=== PATIENT | female | born 1940 | race Caucasian/White ===

== ENCOUNTER → 2017-08-11 | Day surgery (SDC) | payer OTHER ==
[~2017-08-11] VITALS: Ht 154.9 cm; Wt 60.8 kg
[~2017-08-11] MED LIST: *morphine SULFATE 8 MG/ML PERIprocedure ONLY ONE; ACETAMINOPHEN 1000 MG/100 ML 100 ML IV ONE; ASPI-110 PO; BUPIVACAINE/EPINEPHRINE 0.5% 50 ML VIAL ONE; CHLORHEXIDINE GLUCONATE 2 % 1 PACK (2 CLOTHS) TOPICAL PRN; DEXAMETHASONE SOD PHOS 4 MG/ML VIAL IV ONE; DO NOT ADM ANY ANTICOAGULANT DRUGS PRN; ESTROGENS CONJUGATED VAG CREA 15 APPL/30 GM TUBE ONE; FAMOTIDINE 20 MG/2 ML VIAL ONE; FUROSEMIDE 40 MG/4 ML VIAL ONE; GLYCOPYRROLATE 0.2 MG/ML VIAL IV ONE; HYDR-3516 PO; IBUP200T2 PO; INSULIN HUMAN REGULAR 1,000 UNITS/10 ML VIAL SQ PRN; KETOROLAC TROMETHAMINE 30 MG/ML (IVP) VIAL IV PUSH ONE; LABETALOL HCL 100 MG/20 ML VIAL IV ONE; LACTATED RINGER'S 1000 ML INJ 1,000 ML IV ONE; LACTATED RINGER'S 1000 ML IV PRN; LEVO50TA4 PO; LEVO75TA3 PO; LIDOCAINE HCL 1% PF 5 ML AMPULE OTHER ONE; LISI-519 PO; LOVA40TA PO; METHYLENE BLUE 10 MG/ML VIAL IV ONE; METO25TA3 PO; METOPROLOL TARTRATE 25 MG TAB PO PRN; MIDAZOLAM HCL 2 MG/2 ML VIAL IV ONE; MIRA0.5T PO; NEOSTIGMINE 3 MG/3 ML SYR IV ONE; ONDANSETRON HCL 4 MG/2 ML VIAL IV PUSH ONE; OXYTOCIN 10 UNIT/ML AMP ONE; POVIDONE IODINE 5% (ANTISEPSIS KIT) 4 APPLICATIONS EACH NARE PRN; PROPOFOL 200 MG/20 ML AMP IV ONE; ROCURONIUM INJ 50 MG/5 ML SYRINGE IV PUSH ONE; SODIUM CHLORID 0.9% 500 ML IV PRN; SODIUM CHLORIDE 0.9% 20 ML VIAL ONE; VASOPRESSIN 20 UNITS/ML VIAL (IVTITR) ONE; VENTAER INH; VITA1000 PO; ceFAZolin 2 GM PREMIX 50 ML IV SCH; ePHEDrine/NS 25 MG/5 ML SYR IV ONE; oxyCODONE/ACETAMINOPHEN 5 MG/325 MG TAB PO PRN
--- NOTE | 2017-08-11 07:34 | PD.OP ---
Operative Report Date of Surgery: Aug 11, 2017 Preoperative Diagnosis: (1) Incomplete uterovaginal prolapse (2) Intramural leiomyoma of uterus (3) Pelvic and perineal pain Postoperative Diagnosis: (1) Incomplete uterovaginal prolapse (2) Intramural leiomyoma of uterus (3) Pelvic and perineal pain Procedure: 1. LAVH 2. BSO 3. culdoplasty Anesthesia: GETA Surgeon: Mayra Johnson [employer] Operator(s): OR Staff Operation and Findings: IVF: 1500 ml LR + IV antibiotics given prior to surgery EBL: 25 ml UO: 500 ml Findings: 1. abdominal adhesions 2. normal uterus, tubes and ovaries Specimens: cervix, uterus, tubes and ovaries Complications: none Condition: stable Disposition: PACU Descriptions of the procedure: I discussed the risks, benefits and alternatives of the procedure with the patient. Informed consent was obtained after questions were answered. She was then taken to the operating room with her IV running. She was placed in the supine position and was given general anesthesia without difficulties or complications. She was then placed in the dorsal lithotomy position and was prepped and draped in the usual sterile fashion. Attention was first turned to the patient's genital area. A bivalved speculum was introduced inside the patient's vagina. The anterior aspect of the cervix was grasped with a single tooth tenaculum for manipulation. The cervix was carefully dilated and a uterine manipulator was carefully introduced inside her uterus. The rest of the instruments were removed from the patient's vagina and a sterile blue towel was used to cover the perineum. The surgeon changed gloves and attention was then turned to the patient's abdomen. A vertical umbilical incision was made with the scalpel. A 5 mm trocar was introduced inside the patient's abdomen under direct visualization. A pneumo -peritoneum was created with CO2 gas. Next, two 5 mm trocars were introduced inside the patient's abdomen under direct visualization in the lower mid, and left abdomen. A survey of the patient's abdomen revealed normal anatomy with numerous areas of adhesions. A survey of the patient's pelvis revealed the findings noted above. The round ligaments and infundibulopelvic ligaments were carefully and serially grasped, electrocauterized and cut with the Harmonic scalpel. Excellent hemostasis was noted. The tissues along the uterus on both sides were serially grasped, electrocauterized and transected with the Harmonic scalpel. The ureters were noted to be away from the surgical site. The uterine vessels were skeletonized, electrocauterized and transected with the Harmonic scalpel. Good hemostasis was noted. Next, the bladder flap was created and the bladder was dissected off the lower uterine segment. Excellent hemostasis was noted. At this point, attention was again turned to the patient's perineal area. The uterine manipulator was removed. The Bovie was used to circumferentially cut the vaginal tissues at the cervico-vaginal junction after Pitressin was injected. The anterior cul de sac was entered without difficulties. The posterior cul de sac was also entered without difficulties. A retractor was introduced inside the posterior cul de sac. A retractor was placed inside the anterior cul de sac. Curved Matthias clamps were used to clamp the cardinal ligaments. These were transected with Henry scissors and stitched with 0-Vicryl. Good hemostasis was noted. The rest of the tissues along the lower uterine segment were serially clamped, transected with Henry scissors and stitched with 0 -Vicryl. Good hemostasis was noted at each pedicle. The cervix, uterus, tubes and ovaries were removed and sent to pathology. A sponge stick was used to check each pedicle for hemostasis. All the instruments were removed from the patient's pelvis. A Juarez culdoplasty was carefully done. The peritoneum was then reapproximated with a purse string stitch of 0-Vicryl. The pedicles were reapproximated and secured in order to get the vaginal cuff higher in the pelvis. The vaginal tissues were reapproximated with running, locked stitches of 0-Vicryl in a vertical fashion. Premarin cream was placed in the patient's vagina. The surgeon changed gloves and attention was turned again to the patient's abdomen. The pneumoperitoneum was recreated. The surgical sites were noted to be hemostatic. Copious irrigation was done. The ureters were identified and found to be away from the surgical sites. There was no evidence of injury or blockage of the ureters or bladder (Methylene blue was given during the surgery). Interseed was placed over the surgical site. All of the instruments were removed from the patient's abdomen. The ports were also removed under direct visualization. Excellent hemostasis was noted. The CO2 gas was carefully expressed out of the patient's abdomen. The skin incisions were injected with 0.5 % Marcaine and were reapproximated with subcutaneous stitches of 4-0 Vicryl. Mastisol and steri strips were placed over the incisions. The patient tolerated the procedure well. She was successfully extubated and transferred to PACU in stable condition. Note: I discussed surgical procedures and surgical findings with patient's friend during a phone conversation. His questions were answered. He verbalized understanding. Mayra Johnson MD Aug 11, 2017 07:34
[2017-08-11 12:40] VITALS: BP 190/76; PULSE 74; RESP 16; TEMP 96; O2SAT 97
--- NOTE | 2017-08-11 16:23 | EKG ---
Date Performed: 08/11/2017 Time Performed: 06:32:13 PTAGE: 77 years EKG: Sinus rhythm POSSIBLE LEFT ATRIAL ENLARGEMENT BORDERLINE ECG Since PREVIOUS TRACING , no significant change noted PREVIOUS TRACIN01/26/2015 08.15 DOCTOR: Ghada Bonner Interpretating Date/Time 08/11/2017 16:22:24
== END | disposition home or self-care (01) ==
LOC: HSDC 05:40
PROVIDERS: ATTEND Obstetrics & Gynecology
DX: N81.2 Incomplete uterovaginal prolapse (principal); D25.1 Intramural leiomyoma of uterus; K66.0 Peritoneal adhesions (postprocedural) (postinfection); D27.0 Benign neoplasm of right ovary; N83.292 Other ovarian cyst, left side; R10.2 Pelvic and perineal pain; N83.8 Other noninflammatory disorders of ovary, fallopian tube and broad ligament; I10 Essential (primary) hypertension; E78.00 Pure hypercholesterolemia, unspecified; E03.9 Hypothyroidism, unspecified; F41.9 Anxiety disorder, unspecified; I25.2 Old myocardial infarction; G62.9 Polyneuropathy, unspecified; M79.7 Fibromyalgia; Z95.5 Presence of coronary angioplasty implant and graft; Z87.891 Personal history of nicotine dependence; Z79.82 Long term (current) use of aspirin; Z79.51 Long term (current) use of inhaled steroids; Z79.899 Other long term (current) drug therapy
CPT/HCPCS: 00944; 57268; 58552; 86850; 86900; 86901; 88307; 93005; C1765; J0131; J0690; J1100; J1885; J2250; J2270; J2405; J2590; J2710; J3010; J7120; 88305; J1940